=== PATIENT | female | born 1980 | race Caucasian/White ===

== ENCOUNTER 2020-07-14 06:41 | Day surgery (SDC) | payer MEDICAID ==
--- NOTE | 2020-07-13 09:00 | Anesthesia Consultation ---
Anesthesia Consult and Med Hx Date of service: 07/13/20 - Airway Anesthetic Teeth Evaluation: Good ROM Head & Neck: Adequate Mental/Hyoid Distance: Adequate Mallampati Class: Class I Intubation Access Assessment: Good - Pulmonary Exam CTA: Yes - Cardiac Exam Cardiac Exam: RRR - Pre-Operative Health Status ASA Pre-Surgery Classification: ASA3 Proposed Anesthetic Plan: General - Pulmonary Hx Smoking: Yes Hx Asthma: Yes (last inhaler use 10yrs ago) Hx Respiratory Symptoms: No - Cardiovascular System Hx Hypertension: No Hx Heart Attack/AMI: No Hx Percutaneous Transluminal Coronary Angioplasty (PTCA): No Hx Cardia Arrhythmia: No - Central Nervous System CVA: No - Gastrointestinal Hx Gastroesophageal Reflux Disease: No - Endocrine Hx Renal Disease: No Hx Liver Disease: No Hx Insulin Dependent Diabetes: No Hx Non-Insulin Dependent Diabetes: No Hx Thyroid Disease: No - Other Systems Hx Alcohol Use: Yes (Occas) Hx Obesity: Yes (BMI 56) - Additional Comments Anesthesia Medical History Comments: No hx anesthetic complications.
[~2020-07-14 06:41] MED LIST: ACETAMINOPHEN 500 MG TAB PO SCH; CELECOXIB 200 MG CAP PO NR; GABAPENTIN 300 MG CAP PO NR; LACTATED RINGERS 1,000 ML IV SCH; MIDAZOLAM 2 MG/2 ML INJ IV NR
[2020-07-14] MEDS ORDERED: LIDOCAINE MPF (2%) 20 MG/1 ML VIAL 5 ML ONE (07:24)
[2020-07-14] MEDS ORDERED: propofoL 200 MG/20 ML VIAL IV ONE (07:24)
[2020-07-14] MEDS ORDERED: fentaNYL 100 MCG/2 ML INJ ONE (07:24)
[2020-07-14] MEDS ORDERED: ROCURONIUM 50 MG/5 ML INJ IV ONE (07:24)
[2020-07-14] MEDS ORDERED: ONDANSETRON 4 MG/2 ML INJ IV PRN (07:31)
--- NOTE | 2020-07-14 07:31 | Anesthesia Day of Surgery ---
Anesthesia Day of Surgery - Day of Surgery Patient Examined: Yes Patient H&P Reviewed: Yes Patient is NPO: Yes
[2020-07-14] MEDS ORDERED: BUPIVACAINE/PF (0.5%) 5 MG/1 ML 30 ML VIAL INFILTRATI ONE ×2 (07:36→08:59)
[2020-07-14] MEDS ORDERED: SUCCINYLCHOLINE CHLORIDE 200 MG/10 ML INJ MDV ONE (08:20)
[2020-07-14] MEDS ORDERED: dexAMETHasone 20 MG/5 ML VIAL ONE (08:20)
[2020-07-14] MEDS ORDERED: SODIUM CHLORIDE 0.9% IRR 1,500 ML BOTTLE IR ONE (09:00)
[2020-07-14] MEDS ORDERED: SODIUM CHLORIDE 0.9% IRRIG SOLN 2000 ML IR ONE (09:00)
[2020-07-14] MEDS ORDERED: HYDROmorphone 1 MG/1 ML INJ ONE (09:27)
[2020-07-14] MEDS ORDERED: ONDANSETRON 4 MG/2 ML INJ ONE (09:30)
[2020-07-14] MEDS ORDERED: NEOSTIGMINE 10MG/10 ML INJ MDV ONE (09:46)
[2020-07-14] MEDS ORDERED: GLYCOPYRROLATE 0.4 MG/2 ML INJ ONE (09:46)
--- NOTE | 2020-07-14 10:09 | Post Operative Note ---
Date of procedure: 07/14/20 Pre-op diagnosis: 10 cm left ovarian solid cyst Post-op diagnosis: other (10 cm left ovarian SIMPLE cyst. also pelvic adhesions) Findings: Patient had a large left ovarian cyst but it was a simple cyst filled with straw-colored clear fluid. No surrounding excrescences noted. No free fluid in the abdomen or pelvis noted. Patient does have a history of PID. Patient had some scarring in the posterior cul-de-sac and around both ovaries. The left ovary and cyst were particularly well adhered to the pelvic sidewall. Most of these pelvic adhesions were lysed during the case. I did not dissect the left ovary and cyst off of the pelvic sidewall though. But there was a small amount of adhesions to the small bowel from the left ovarian cyst in the area which were lysed safely. The uterus was normal and the right ovary was normal except for the adhesions that I just noted. The general abdominal survey was also normal except for a little bit of scarring between the liver and anterior peritoneal wall. This is consistent with her PID history. Procedure: Indication: 39-year-old with large left ovarian cyst. Preoperatively imaging suggest that it was a solid cyst. Intraoperatively was found to be a simple cyst. Patient also with pelvic pain from it. Procedure: Laparoscopic left ovarian cystectomy and lysis of adhesions. Patient taken the operating room and prepped and draped in usual fashion. Attention was first turned vaginally where single-tooth tenaculum was applied to the anterior lip of the cervix and an acorn uterine manipulator was placed. Attention was now turned abdominally where a 5 mm incision was made in the umbilicus. Veres needle then placed in the abdominal cavity. The abdomen was appropriately insufflated with CO2 gas. Veres needle removed and the 5 mm trocar was placed in abdominal cavity. Placement confirmed with the camera. Attention was turned suprapubically where an 11 mm incision was made and the 11 mm trocar was placed suprapubically in the midline under direct visualization. Trocar placed successfully and without difficulty. Attention was first turned to assess in the abdomen and pelvis. Findings noted above. At this point a 5 mm left lower quadrant trocar site was also made about 2 fingerbreadths superior and medial to the ASIS. The trocar was also placed under direct visualization without difficulty. At this point attention was first turned to the above-noted adhesions which were all lysed using EndoShears. This helped free up that left ovary to improve visualization. At this point incision was made on the top part of the ovarian cyst. Clear straw-colored fluid was noted. Suction commission associate placed in the cyst cavity and suctioned out approximately 300 cc of fluid. Good hemostasis noted at this point. At this point attention was turned to removing the internal ovarian cyst wall using graspers. A large portion of the cyst wall was able to be removed in pieces. There were parts of the cyst wall that were unable to be removed due to the significant scarring to the ovarian tissue. But a large amount was able to be safely removed. At this point it was felt that no additional ovarian cyst wall would be able to be safely removed so the procedure was concluded. Good hemostasis noted throughout. Surgicel x2 was placed in the ovarian cyst cavity. The 11 mm suprapubic trocar site was closed using the Ladarius Hoff device and 0 Vicryl. At this point the abdomen was fully desufflated. Remaining trochars were removed. Trocar sites were closed with 4- 0 Vicryl in a subcuticular fashion followed by Marcaine. The acorn uterine manipulator and single-tooth tenaculum were removed. Procedure concluded at this point. Patient tolerated the procedure well. All instrument lap counts were correct. Patient taken to the recovery room in stable condition. Anesthesia: GETA Surgeon: DANIELLA BHAKTA Estimated blood loss: minimal Pathology: list (left ovarian cyst wall) Specimen disposition: to lab Condition: stable Disposition: PACU
[2020-07-14] MEDS: HYDROmorphone 1 MG/1 ML INJ IV PRN ×2 (10:21→10:33)
--- NOTE | 2020-07-14 10:36 | Short Stay Summary ---
Short Stay Documentation Date of service: 07/14/20 Narrative H&P: Patient here for a laparoscopic left ovarian cystectomy for a large simple cyst. Lysis of adhesions were also done. Surgery was uncomplicated. Please see H&P and operative report for details. Patient sent home in stable condition with instructions to follow-up in the office 2 weeks postop. - History H&P: obtained from office (See paper chart) - Allergies and Medications Current Medications: Allergies No Known Allergies Allergy (Unverified 07/07/20 15:00) Home Medications Medication Instructions Recorded Confirmed Last Taken Type Loratadine [Claritin] 10 mg PO DAILY 07/07/20 07/14/20 07/13/20 22:00 History diphenhydrAMINE [Benadryl CAP] 25 mg PO Q8HR 07/07/20 07/14/20 07/13/20 22:00 History Ibuprofen [Motrin 600 MG tab] 600 mg PO Q8H PRN #30 tablet 07/14/20 Unknown Rx oxyCODONE /ACETAMINOPHEN [Percocet 1 tab PO Q4HR PRN #30 tab 07/14/20 Unknown Rx 5/325] Active Medications Acetaminophen (Tylenol) 1,000 mg PO PREOP TARIK Stop: 07/14/20 22:00 Last Admin: 07/14/20 07:25 Dose: 1,000 mg Documented by: Celecoxib (Celebrex) 200 mg PO PREOP NR Stop: 07/14/20 22:00 Last Admin: 07/14/20 07:25 Dose: 200 mg Documented by: Gabapentin (Gabapentin) 300 mg PO PREOP NR Stop: 07/14/20 22:00 Last Admin: 07/14/20 07:25 Dose: 300 mg Documented by: Hydromorphone HCl (Dilaudid) 0.5 mg IV Q10MIN PRN PRN Reason: Pain , Severe (7-10) Stop: 07/14/20 23:00 Last Admin: 07/14/20 10:21 Dose: 0.5 mg Documented by: Lactated Ringer's (Lactated Ringers) 1,000 mls @ 100 mls/hr IV DIRECT TARIK Stop: 07/14/20 23:59 Last Admin: 07/14/20 07:30 Dose: 100 mls/hr Documented by: Midazolam HCl (Versed) 2 mg IV PREOP NR Stop: 07/14/20 23:00 Last Admin: 07/14/20 08:08 Dose: 2 mg Documented by: Ondansetron HCl (Zofran) 4 mg IV ONCE PRN PRN Reason: Nausea And Vomiting Stop: 07/14/20 18:00 - Disposition Condition at discharge: Stable Disposition: DC-01 TO HOME OR SELFCARE - Discharge Diagnoses (1) Ovarian cyst Status: Acute (2) Pelvic pain Status: Acute Short Stay Discharge Plan Follow up with: DANIELLA BHAKTA MD [Staff Physician] - 14 Days Prescriptions: Ibuprofen [Motrin 600 MG tab] 600 mg PO Q8H PRN #30 tablet PRN Reason: Pain oxyCODONE /ACETAMINOPHEN [Percocet 5/325] 1 tab PO Q4HR PRN #30 tab PRN Reason: Pain , Severe (7-10)
[2020-07-14] MEDS ORDERED: oxyCODONE /ACETAMINOPHEN 5-325MG TAB PO PRN (11:00)
[2020-07-14 11:06] VITALS: BP 123/58
--- NOTE | 2020-07-14 15:21 | Post Anesthesia Evaluation ---
- Post Anesthesia Evaluation Patient Participated: Yes Airway Patent: Yes Stable Respiratory Function: Yes Nausea/Vomiting: No Temp > 96.8F: Yes Pain Manageable: Yes Adequeate Hydration: Yes Anesthesia Complications: No
== END 2020-07-14 06:42 | disposition home or self-care (01) ==
LOC: OR 06:41
PROVIDERS: ATTEND Obstetrics & Gynecology
DX: N83.202 Unspecified ovarian cyst, left side (principal); Z20.828 Contact with and (suspected) exposure to other viral communicable diseases; N83.8 Other noninflammatory disorders of ovary, fallopian tube and broad ligament; J45.909 Unspecified asthma, uncomplicated; K66.0 Peritoneal adhesions (postprocedural) (postinfection); E66.9 Obesity, unspecified; Z87.891 Personal history of nicotine dependence; Z79.899 Other long term (current) drug therapy; Z72.89 Other problems related to lifestyle; Z68.43 Body mass index [BMI] 50.0-59.9, adult
CPT/HCPCS: 58662; 88305; A4217; J0330; J1100; J1170; J2250; J2405; J2704; J2710; J3010; J7120; U0003